=== PATIENT | male | born 1995 | race Two or more races ===

== ENCOUNTER 2020-05-04 21:34 | Emergency (ER) | payer MEDICAID ==
[2020-05-04] MEDS ORDERED: Ketorolac 30mg Inj IV ONE (22:00)
[2020-05-04] MEDS ORDERED: Morphine Sulfate 4mg/ml Inj (IV USE ONLY) IVP ONE (22:00)
[2020-05-04] MEDS ORDERED: IBUPROFEN600 M1 ORAL (23:13)
[2020-05-04] MEDS ORDERED: ACETAMINOPHEN500 M3 ORAL (23:14)
== END 2020-05-04 23:51 | disposition home or self-care (01) ==
DX: S43.004A Unspecified dislocation of right shoulder joint, initial encounter (principal); S42.291A Other displaced fracture of upper end of right humerus, initial encounter for closed fracture; V00.131A Fall from skateboard, initial encounter; Y92.9 Unspecified place or not applicable
CPT/HCPCS: 23650; 73030; 96374; 96375; J1885; J2270; J2405; Z7502